=== PATIENT | female | born 1985 | race American Indian/Alaskan Native ===

== ENCOUNTER 2021-12-19 13:42 | Emergency (ER) | payer SELFPAY ==
[2021-12-19] MEDS ORDERED: ACETAMINOPHEN 500 MG TAB PO ONE (14:35)
[2021-12-19 15:54] LABS: Hematocrit 39.1 % (30.3-42.9); Hemoglobin 12.8 gm/dl (10.1-14.3); Mean Corpuscular HGB Conc 33 % (30-34); Mean Corpuscular Volume 91 fl (79-97); Platelet Count 293 K/mm3 (140-440); Red Cell Distribution Width 13.2 % (13.2-15.2)
--- NOTE | 2021-12-19 16:22 | XRay Report ---
CHEST 2 VIEWS INDICATION / CLINICAL INFORMATION: fever. COMPARISON: None available. FINDINGS: SUPPORT DEVICES: None. HEART / MEDIASTINUM: No significant abnormality. LUNGS / PLEURA: No significant pulmonary or pleural abnormality. No pneumothorax. ADDITIONAL FINDINGS: No significant additional findings. IMPRESSION: 1. No acute findings. Signer Name: Clifford Ambrose DO Signed: 12/19/2021 4:17 PM Workstation Name: [id number]
[2021-12-19 17:23] LABS: Alanine Aminotransferase 10 units/L (7-56); Blood Urea Nitrogen 8 mg/dL (7-17); Hemolysis Index 3
[2021-12-19 17:26] LABS: BUN/Creatinine Ratio 13
[2021-12-19 20:50] LABS: Mucus,Urine 3+ /HPF
[2021-12-19] MEDS ORDERED: KETOROLAC 30 MG/1 ML INJ IV STA (21:16)
[2021-12-19] MEDS ORDERED: SODIUM CHLORIDE 0.9% 1000 ML 1,000 ML IV ONE (21:16)
[2021-12-19 21:22] LABS: Color,Urine Yellow (Yellow)
[2021-12-19 21:24] LABS: Bilirubin,Urine Negative (Negative); Blood,Urine Negative (Negative); HCG Qualitative,Urine Negative (Negative); RBC,Urine < 1.0 /HPF (0.0-6.0); WBC,Urine < 1.0 /HPF (0.0-6.0)
[2021-12-20 01:45] VITALS: BP 112/82
--- NOTE | 2021-12-20 01:50 | Emergency Department Report ---
ED General Adult HPI - General Chief complaint: Fever Stated complaint: BODYACHES/SHAKING/CHEST PAIN Time Seen by Provider: 12/19/21 20:57 Source: patient Mode of arrival: Ambulatory Limitations: No Limitations - History of Present Illness Initial comments: 36-year-old man female [facility] emerged department complaining 2-day history of dull throbbing headache associated with sore throat aphasia and fever sensation. She reports no nausea, no vomiting, no hemoptysis and, no hematemesis hematochezia. She does have some vague chest discomfort with coughing from time to time. 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 Occasionally she gets some tingling sensation numbness down her legs and she feels that it starts to shake which is new since that onset Severity scale (0 -10): 10 - Related Data Previous Rx's Medication Instructions Recorded Last Taken Type Amoxicillin/K Clav Tab [Augmentin 1 tab PO Q12HR #20 tab 12/20/21 Unknown Rx 875 mg] Ketorolac [Toradol] 10 mg PO Q6H PRN #15 tablet 12/20/21 Unknown Rx Lidocaine Viscous 2% 5 ml MM Q3H PRN #120 udc 12/20/21 Unknown Rx methOCARBAMOL [Robaxin TAB] 750 mg PO Q8H PRN #14 tablet 12/20/21 Unknown Rx Allergies Allergy/AdvReac Type Severity Reaction Status Date / Time iodine Allergy Swelling Verified 12/19/21 16:44 Sulfa (Sulfonamide Allergy Swelling Verified 12/19/21 16:44 Antibiotics) ED Review of Systems ROS: Stated complaint: BODYACHES/SHAKING/CHEST PAIN Other details as noted in HPI Comment: All other systems reviewed and negative ED Past Medical Hx - Past Medical History 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) - Surgical History Additional Surgical History: hysterectomy - Social History Smoking Status: Current Every Day Smoker - Medications Home Medications: Home Medications Medication Instructions Recorded Confirmed Last Taken Type Amoxicillin/K Clav Tab [Augmentin 1 tab PO Q12HR #20 tab 12/20/21 Unknown Rx 875 mg] Ketorolac [Toradol] 10 mg PO Q6H PRN #15 tablet 12/20/21 Unknown Rx Lidocaine Viscous 2% 5 ml MM Q3H PRN #120 udc 12/20/21 Unknown Rx methOCARBAMOL [Robaxin TAB] 750 mg PO Q8H PRN #14 tablet 12/20/21 Unknown Rx ED Physical Exam - General Limitations: No Limitations General appearance: alert, in no apparent distress - Head Head exam: Present: atraumatic, normocephalic - Eye Eye exam: Present: normal appearance, PERRL, EOMI Pupils: Present: normal accommodation - ENT ENT exam: Present: mucous membranes moist - Neck Neck exam: Present: normal inspection - Respiratory Respiratory exam: Present: normal lung sounds bilaterally. Absent: respiratory distress - Cardiovascular Cardiovascular Exam: Present: regular rate, normal rhythm. Absent: systolic murmur, diastolic murmur, rubs, gallop - GI/Abdominal GI/Abdominal exam: Present: soft, normal bowel sounds - Extremities Exam Extremities exam: Present: normal inspection - Back Exam Back exam: Present: normal inspection, tenderness, muscle spasm, paraspinal tenderness, other (Pain with straight leg raise and Van's test.). Absent: CVA tenderness (R), CVA tenderness (L) - Neurological Exam Neurological exam: Present: alert, oriented X3 - Psychiatric Psychiatric exam: Present: normal affect, normal mood - Skin Skin exam: Present: warm, dry, intact, normal color. Absent: rash ED Course Vital Signs 12/19/21 12/19/21 14:00 23:03 Temperature 101.5 F H Pulse Rate 127 H Respiratory 22 16 Rate Blood Pressure 130/57 [Right] O2 Sat by Pulse 96 Oximetry ED Medical Decision Making - Lab Data Result diagrams: 12/19/21 15:13 12/19/21 15:13 Critical care attestation.: If time is entered above; I have spent that time in minutes in the direct care of this critically ill patient, excluding procedure time. ED Disposition Clinical Impression: Pharyngitis, Lymphadenopathy, Coccyalgia Disposition: 01 HOME / SELF CARE / HOMELESS Is pt being admited?: No Does the pt Need Aspirin: No Condition: Stable Instructions: Strep Throat, Adult, Strep Throat, Adult, [id number], Pharyngitis, [id number], Sacroiliac Joint Dysfunction, Sore Throat Prescriptions: Amoxicillin/K Clav Tab [Augmentin 875 mg] 1 tab PO Q12HR #20 tab Lidocaine Viscous 2% 5 ml MM Q3H PRN #120 udc PRN Reason: Pain, Moderate (4-6) methOCARBAMOL [Robaxin TAB] 750 mg PO Q8H PRN #14 tablet PRN Reason: Pain, Moderate (4-6) Ketorolac [Toradol] 10 mg PO Q6H PRN #15 tablet PRN Reason: Pain Referrals: PRIMARY CARE, [Primary Care Provider] - 3-5 Days [facility] [Provider Group] - 3-5 Days JUVENTINO JIMENEZ MD [Staff Physician] - 3-5 Days
== END 2021-12-20 03:02 | disposition home or self-care (01) ==
LOC: ED 13:42
DX: J02.9 Acute pharyngitis, unspecified (principal); R59.1 Generalized enlarged lymph nodes; M53.3 Sacrococcygeal disorders, not elsewhere classified; Z86.73 Personal history of transient ischemic attack (TIA), and cerebral infarction without residual deficits; Z98.890 Other specified postprocedural states; F17.290 Nicotine dependence, other tobacco product, uncomplicated; Z88.2 Allergy status to sulfonamides; Z91.041 Radiographic dye allergy status
CPT/HCPCS: 36415; 71046; 80053; 81001; 81025; 85027; 96361; 96374; 99284; J1885; J7030